=== PATIENT | female | born 1955 | race Caucasian/White ===

== ENCOUNTER 2017-09-25 12:30 | Emergency (ER) | payer OTHER ==
[2017-09-25] MEDS ORDERED: NS 1,000 ML IV ONE (13:51)
[2017-09-25 14:38] LABS: INR 1.46 (0.83-1.16); PROTIME(PATIENT) 17.9 SEC (12.0-15.0)
[2017-09-25 15:22] LABS: PLATELET COUNT 116 10^3/uL (150-400)
--- NOTE | 2017-09-25 15:34 | EDPHY ---
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 She is currently on anticoagulants. She is visiting from [place]. Yesterday she noted dark tarry stools and called her GI specialist who recommended she go to the ER. She denies abdominal pain, weakness, lightheadedness. She denies any hematemesis. She has been compliant with her medications. REVIEW OF SYSTEMS: Aside from elements discussed in the HPI, a comprehensive 10-point review of systems was reviewed and is negative. PMH: Includes chronic liver disease, anticoagulant use. SOCIAL HISTORY: Lives in [place]. Her child is getting this weekend. PHYSICAL EXAM: General:Patient is alert, in no acute distress. ENT:Eyes are normal to inspection. ENT inspection normal. Neck: Normal inspection. Full range of motion. Respiratory:No respiratory distress. Breath sounds normal bilaterally. Cardiovascular: Regular rate and rhythm. Strong peripheral pulses. Normal cap refill. Abdomen:The abdomen is nontender to palpation. There are no peritoneal signs. There are normal bowel sounds. Back: Normal to inspection. No tenderness to palpation. Skin: Normal color. No rash. Warm and dry. Extremities: Normal appearance. Full range of motion. Neuro: Oriented x3. Normal motor function. Normal sensory function. (Pramod Edgar) ED Course: I consulted Dr. Marte it from GI and related the patient's lab results and history. He recommends that we admit patient to the hospital overnight, ray Aparicio for 4 doses and they will perform an EGD on Thursday. However, the patient is here for her son's wedding and is very reluctant to follow this plan. I had extensive discussion with her and she would like to be discharged. Her family will watch her closely and the patient is well aware of the fact that she may be suffering from potentially life-threatening bleeding, and her decision may result in . (Pramod Edgar) MDM: 4:30 p.m. 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 I spoke with the on-call physician there. He encourage his her to stay in the hospital but does not know her personally and declined to speak with her on the phone. I spoke with the patient about this. She continues to refuse admission. We will have her to leave AMA. I gave her strict precautions to return immediately if her bleeding worsens or she became lightheaded or hypotensive etc. 5:15 p.m. the patient asked to speak to me again. She and her sister are requesting that I will order outpatient CBC for her to have taken on Thursday and sent her primary doctor. She also asked if she could begin taking Pepcid which I did recommend. We also discussed further symptoms and indications for returning emergently to the emergency department. (Charlie Lancaster) - Data Points Laboratory Results: Laboratory Results 09/25/17 14:15 09/25/17 14:15 09/25/17 09/25/17 09/25/17 14:15 14:15 14:15 WBC 6.02 10^3/uL 10^3/uL (3.80-9.50) RBC 3.83 10^6/uL L 10^6/uL (4.18-5.33) Hgb 12.4 g/dL L g/dL (12.6-16.3) Hct 35.9 % L % (38.0-47.0) MCV 93.7 fL fL (81.5-99.8) MCH 32.4 pg pg (27.9-34.1) MCHC 34.5 g/dL g/dL (32.4-36.7) RDW 14.3 % % (11.5-15.2) Plt Count 116 10^3/uL L 10^3/uL (150-400) MPV 11.0 fL fL (8.7-11.7) Neut % (Auto) 64.6 % % (39.3-74.2) Lymph % (Auto) 26.2 % % (15.0-45.0) [place] % (Auto) 6.6 % % (4.5-13.0) Eos % (Auto) 1.8 % % (0.6-7.6) Baso % (Auto) 0.5 % % (0.3-1.7) Nucleat RBC Rel Count 0.0 % % (0.0-0.2) Absolute Neuts (auto) 3.88 10^3/uL 10^3/uL (1.70-6.50) Absolute Lymphs (auto) 1.58 10^3/uL 10^3/uL (1.00-3.00) Absolute Monos (auto) 0.40 10^3/uL 10^3/uL (0.30-0.80) Absolute Eos (auto) 0.11 10^3/uL 10^3/uL (0.03-0.40) Absolute Basos (auto) 0.03 10^3/uL 10^3/uL (0.02-0.10) Absolute Nucleated RBC 0.00 10^3/uL 10^3/uL (0-0.01) Immature Gran % 0.3 % % (0.0-1.1) Seg Neutrophils % TNP Band Neutrophils % Cancelled Lymphocytes % Cancelled Monocytes % Cancelled Eosinophils % Cancelled Basophils % Cancelled Metamyelocytes % Cancelled Myelocytes % Cancelled Promyelocytes % Cancelled Blast Cells % Cancelled Megakaryocytes % Cancelled Immature Gran # 0.02 10^3/uL 10^3/uL (0.00-0.10) Absolute Seg Neuts Cancelled Absolute Band Neuts Cancelled Absolute Lymphocytes Cancelled Absolute Monocytes Cancelled Absolute Eosinophils Cancelled Absolute Basophils Cancelled Absolute Metamyelocyte Cancelled Absolute Myelocytes Cancelled Absolute Promyelocytes Cancelled Absolute Plasma Cells Cancelled Nucleated RBCs Cancelled Differential Comment Cancelled RBC/WBC/PLT Morphology Cancelled Hypersegmented Neuts Cancelled Atypical Lymphocytes Cancelled Absolute Blast Cells Cancelled Plasma Cells % Cancelled Smudge Cells Cancelled Toxic Granulation Cancelled Toxic Vacuolation Cancelled Dohle Bodies Cancelled Raymundo Rods Cancelled Platelet Estimate DECREASED L (ADEQ) Clumped Platelets Cancelled Large Platelets Cancelled Giant Platelets Cancelled Bizarre Platelets Cancelled Polychromasia Cancelled Hypochromasia Cancelled Basophilic Stippling Cancelled Microcytic Cells Cancelled Spherocytes Cancelled Pappenheimer Bodies Cancelled Sickle Cells Cancelled Target Cells Cancelled Tear Drop Cells Cancelled Oval Macrocytes Cancelled Stomatocytes Cancelled [place] Bodies Cancelled Echinocytes Cancelled Elliptocytes Cancelled Acanthocytes (Spur) Cancelled Rouleaux Cancelled Keratocytes Cancelled Schistocytes Cancelled PT 17.9 SEC H SEC (12.0-15.0) INR 1.46 H (0.83-1.16) APTT 30.5 SEC SEC (23.0-38.0) Sodium 136 mEq/L mEq/L (135-145) Potassium 4.9 mEq/L mEq/L (3.5-5.2) Chloride 103 mEq/L mEq/L (97-110) Carbon Dioxide 24 mEq/l mEq/l (22-31) Anion Gap 9 mEq/L mEq/L (8-16) BUN 21 mg/dL mg/dL (7-23) Creatinine 0.8 mg/dL mg/dL (0.6-1.0) Estimated GFR > 60 Glucose 103 mg/dL H mg/dL (70-100) Calcium 9.1 mg/dL mg/dL (8.5-10.4) Total Bilirubin 1.4 mg/dL mg/dL (0.1-1.4) Conjugated Bilirubin 0.8 mg/dL H mg/dL (0.0-0.5) Unconjugated Bilirubin 0.6 mg/dL mg/dL (0.0-1.1) AST 64 IU/L H IU/L (14-46) ALT 52 IU/L IU/L (9-52) Alkaline Phosphatase 179 IU/L H IU/L (38-126) Total Protein 8.1 g/dL g/dL (6.3-8.2) Albumin 2.9 g/dL L g/dL (3.5-5.0) Lipase 261 IU/L IU/L (23-300) Stool Occult Bld Scrn Cold Agglutinins Cancelled 09/25/17 13:30 WBC RBC Hgb Hct MCV MCH MCHC RDW Plt Count MPV Neut % (Auto) Lymph % (Auto) [place] % (Auto) Eos % (Auto) Baso % (Auto) Nucleat RBC Rel Count Absolute Neuts (auto) Absolute Lymphs (auto) Absolute Monos (auto) Absolute Eos (auto) Absolute Basos (auto) Absolute Nucleated RBC Immature Gran % Seg Neutrophils % Band Neutrophils % Lymphocytes % Monocytes % Eosinophils % Basophils % Metamyelocytes % Myelocytes % Promyelocytes % Blast Cells % Meg[place]aryocytes % Immature Gran # Absolute Seg Neuts Absolute Band Neuts Absolute Lymphocytes Absolute Monocytes Absolute Eosinophils Absolute Basophils Absolute Metamyelocyte Absolute Myelocytes Absolute Promyelocytes Absolute Plasma Cells Nucleated RBCs Differential Comment RBC/WBC/PLT Morphology Hypersegmented Neuts Atypical Lymphocytes Absolute Blast Cells Plasma Cells % Smudge Cells Toxic Granulation Toxic Vacuolation Dohle Bodies Raymundo Rods Platelet Estimate Clumped Platelets Large Platelets Giant Platelets Bizarre Platelets Polychromasia Hypochromasia Basophilic Stippling Microcytic Cells Spherocytes Pappenheimer Bodies Sickle Cells Target Cells Tear Drop Cells Oval Macrocytes Stomatocytes [place] Bodies Echinocytes Elliptocytes Acanthocytes (Spur) Rouleaux Keratocytes Schistocytes PT INR APTT Sodium Potassium Chloride Carbon Dioxide Anion Gap BUN Creatinine Estimated GFR Glucose Calcium Total Bilirubin Conjugated Bilirubin Unconjugated Bilirubin AST ALT Alkaline Phosphatase Total Protein Albumin Lipase Stool Occult Bld Scrn POSITIVE H (NEGATIVE) Cold Agglutinins Medications Given: Discontinued Medications Sodium Chloride (Ns) 1,000 mls @ 0 mls/hr IV EDNOW ONE; Wide Open PRN Reason: Protocol Stop: 09/25/17 13:52 Last Admin: 09/25/17 14:14 Dose: 1,000 mls General Time Seen by Provider: 09/25/17 13:48 Initial Vital Signs: Initial Vital Signs Temperature (C) 36.8 C 09/25/17 12:37 Heart Rate 63 09/25/17 12:37 Respiratory Rate 20 09/25/17 12:37 Blood Pressure 113/67 09/25/17 12:37 O2 Sat (%) 94 09/25/17 12:37 O2 Delivery Mode Room Air Allergies/Adverse Reactions: acetaminophen Allergy (Verified 09/25/17 12:35) ibuprofen Allergy (Verified 09/25/17 12:35) Home Medications: Medication Instructions Recorded Augmentin 875 MG TAB (*) 09/25/17 Coreg 09/25/17 Eliquis 09/25/17 Fluconazole 09/25/17 Pulmicort 09/25/17 Singulair 09/25/17 Spironolactone 09/25/17 Ursodiol 09/25/17 Departure - Departure Disposition: Against Medical Advice Clinical Impression: Primary sclerosing cholangitis GI bleed Qualifiers: GI bleed type/associated pathology: unspecified gastrointestinal hemorrhage type Qualified Code(s): K92.2 - Gastrointestinal hemorrhage, unspecified Liver cirrhosis Qualifiers: Hepatic cirrhosis type: other cirrhosis Qualified Code(s): K74.69 - Other cirrhosis of liver Condition: Good Instructions: Gastrointestinal Bleeding (ED) Additional Instructions: Return to the emergency department via ambulance immediately for throwing up blood, chest pain, shortness of breath, weakness, fatigue or worsening dark tarry stools. Please discuss with your primary liver specialist as soon as possible. We will be happy to evaluate you here in the ER again at any time. We recommend you do not go on hikes or drive to an area that does not have good cell phone coverage and EMS response. Referrals: NONE *PRIMARY CARE P,. [Primary Care Provider] - As per Instructions Stand Alone Forms: Airline Excuse
[2017-09-25 16:56] VITALS: BP 105/72
== END 2017-09-25 17:23 | disposition left against medical advice (07) ==
DX: K92.2 Gastrointestinal hemorrhage, unspecified (principal); K74.69 Other cirrhosis of liver; K83.0 Cholangitis; E86.9 Volume depletion, unspecified